=== PATIENT | male | born 1975 | race Two or more races ===

== ENCOUNTER 2021-09-04 13:20 | Inpatient (IN) | payer OTHER ==
[2021-09-04 15:12] VITALS: BMI 34.2
[2021-09-04] MEDS ORDERED: ACETAMINOPHEN 325 MG TABLET (FP) PO PRN (16:19)
[2021-09-04] MEDS ORDERED: P-EPHED 60MG/TRIPROLIDI 2.5MG TABLET PO PRN (16:19)
[2021-09-04] MEDS ORDERED: IBUPROFEN 400 MG TABLET (FP) PO PRN (16:19)
[2021-09-04] MEDS ORDERED: LOPERAMIDE HCL 2 MG CAPSULE PO PRN (16:19)
[2021-09-04] MEDS ORDERED: MAG HYDROX/AL HYDROX/SIMETH 30 ML UNIT-DOSE CUP PO PRN (16:19)
[2021-09-04] MEDS ORDERED: guaiFENesin 200 MG/10 ML 10 ML UNIT-DOSE CUPS PO PRN (16:19)
[2021-09-04] MEDS ORDERED: MAGNESIUM CITRATE 300 ML BOTTLE PO PRN (16:19)
[2021-09-04] MEDS ORDERED: MAGNESIUM HYDROX 2400MG/30ML ORAL SUSPENSION 30 ML CUP PO PRN (16:19)
[2021-09-04] MEDS: hydrOXYzine PAMOATE 25 MG CAPSULE (FP) PO SCH ×2 (20:58→21:02)
[2021-09-04] MEDS: MELATONIN 5 MG TABLETS PO SCH (21:02)
[2021-09-04] MEDS: THIAMINE HCL 100 MG TABLET (FP) PO SCH (21:02)
[2021-09-05] MEDS: hydrOXYzine PAMOATE 25 MG CAPSULE (FP) PO SCH ×5 (06:37→21:07)
[2021-09-05] MEDS ORDERED: methaDONE HCL 10 MG TABLET PO ONE (09:14)
[2021-09-05] MEDS ORDERED: methaDONE 40 MG, methaDONE 20 MG PO ONE (09:30)
[2021-09-05] MEDS ORDERED: methaDONE HCL 10 MG TABLET ONE (09:37)
[2021-09-05] MEDS ORDERED: methaDONE HCL 40 MG DISPERSABLE TABLET ONE (09:37)
[2021-09-05] MEDS: NICOTINE 7 MG/24 HOURS TOPICAL PATCH TD SCH (10:13)
[2021-09-05] MEDS: PRENATAL VITAMINS W/ FOLIC ACID TABLET (FP) PO SCH (10:13)
[2021-09-05] MEDS: LISINOPRIL 20 MG TABLET PO SCH (10:14)
[2021-09-05 10:40] LABS: URINE APPEARANCE CLEAR; URINE BILIRUBIN NEGATIVE (NEGATIVE); URINE COLOR YELLOW; URINE GLUCOSE (UA) NEGATIVE (NEGATIVE); URINE KETONE NEGATIVE (NEGATIVE); URINE LEUK ESTERASE NEGATIVE (NEGATIVE); URINE NITRITE NEGATIVE (NEGATIVE); URINE PROTEIN NEGATIVE (NEGATIVE)
[2021-09-05] MEDS: APIXABAN 2.5 MG TABLET PO SCH ×2 (11:31→21:08)
[2021-09-05] MEDS: INSULIN SLIDING SCALE (NOVOLOG) 1 VIAL SQ SCH ×3 (11:33→21:09)
[2021-09-05] MEDS: GABAPENTIN 400 MG CAPSULE PO SCH ×2 (15:32→21:07)
[2021-09-05] MEDS: THIAMINE HCL 100 MG TABLET (FP) PO SCH (21:07)
[2021-09-05] MEDS: MELATONIN 5 MG TABLETS PO SCH (21:07)
[2021-09-05] MEDS: INSULIN (LEVEMIR) 100 UNITS/ML UNITS SQ SCH (21:08)
[2021-09-05] MEDS: ATORVASTATIN CA 10 MG TABLET (FP) PO SCH (21:08)
[2021-09-06] MEDS ORDERED: methaDONE HCL 40 MG DISPERSABLE TABLET ONE (04:05)
[2021-09-06] MEDS ORDERED: methaDONE HCL 10 MG TABLET ONE (04:06)
[2021-09-06] MEDS ORDERED: methaDONE HCL 10 MG TABLET PO SCH (06:00)
[2021-09-06] MEDS: methaDONE 40 MG, methaDONE 20 MG PO SCH (06:24)
[2021-09-06] MEDS: hydrOXYzine PAMOATE 25 MG CAPSULE (FP) PO SCH ×5 (06:24→21:07)
[2021-09-06] MEDS: GABAPENTIN 400 MG CAPSULE PO SCH ×3 (06:24→21:07)
[2021-09-06] MEDS: INSULIN SLIDING SCALE (NOVOLOG) 1 VIAL SQ SCH ×4 (06:27→21:17)
[2021-09-06] MEDS: PRENATAL VITAMINS W/ FOLIC ACID TABLET (FP) PO SCH (09:55)
[2021-09-06] MEDS: APIXABAN 2.5 MG TABLET PO SCH ×2 (09:55→21:08)
[2021-09-06] MEDS: LISINOPRIL 20 MG TABLET PO SCH (09:55)
[2021-09-06] MEDS: NICOTINE 7 MG/24 HOURS TOPICAL PATCH TD SCH (09:55)
[2021-09-06 10:48] LABS: BLOOD UREA NITROGEN 8.5 mg/dL (7-18)
[2021-09-06 10:51] LABS: CREATININE 0.7 mg/dL (0.55-1.3)
[2021-09-06] MEDS: LIDOCAINE 5% TOPICAL PATCH TP SCH (11:48)
[2021-09-06] MEDS: ATORVASTATIN CA 10 MG TABLET (FP) PO SCH (21:07)
[2021-09-06] MEDS: THIAMINE HCL 100 MG TABLET (FP) PO SCH (21:07)
[2021-09-06] MEDS: MELATONIN 5 MG TABLETS PO SCH (21:07)
[2021-09-06] MEDS: INSULIN (LEVEMIR) 100 UNITS/ML UNITS SQ SCH (21:08)
[2021-09-06] MEDS: LIDOCAINE PATCH REMOVAL MC SCH (21:09)
[2021-09-07] MEDS ORDERED: methaDONE HCL 40 MG DISPERSABLE TABLET ONE (04:20)
[2021-09-07] MEDS ORDERED: methaDONE HCL 10 MG TABLET ONE (04:20)
[2021-09-07] MEDS: hydrOXYzine PAMOATE 25 MG CAPSULE (FP) PO SCH ×5 (06:18→21:50)
[2021-09-07] MEDS: methaDONE 40 MG, methaDONE 20 MG PO SCH (06:18)
[2021-09-07] MEDS: GABAPENTIN 400 MG CAPSULE PO SCH ×3 (06:18→21:28)
[2021-09-07] MEDS: INSULIN SLIDING SCALE (NOVOLOG) 1 VIAL SQ SCH ×4 (06:22→21:49)
[2021-09-07] MEDS: NICOTINE 7 MG/24 HOURS TOPICAL PATCH TD SCH (09:24)
[2021-09-07] MEDS: LIDOCAINE 5% TOPICAL PATCH TP SCH (09:24)
[2021-09-07] MEDS: APIXABAN 2.5 MG TABLET PO SCH ×2 (09:24→21:28)
[2021-09-07] MEDS: PRENATAL VITAMINS W/ FOLIC ACID TABLET (FP) PO SCH (09:24)
[2021-09-07] MEDS: LISINOPRIL 20 MG TABLET PO SCH (09:24)
[2021-09-07] MEDS: THIAMINE HCL 100 MG TABLET (FP) PO SCH (21:27)
[2021-09-07] MEDS: ATORVASTATIN CA 10 MG TABLET (FP) PO SCH (21:27)
[2021-09-07] MEDS: MELATONIN 5 MG TABLETS PO SCH (21:28)
[2021-09-07] MEDS: LIDOCAINE PATCH REMOVAL MC SCH (21:28)
[2021-09-07] MEDS: INSULIN (LEVEMIR) 100 UNITS/ML UNITS SQ SCH (21:34)
[2021-09-08] MEDS ORDERED: methaDONE HCL 10 MG TABLET ONE (03:50)
[2021-09-08] MEDS ORDERED: methaDONE HCL 40 MG DISPERSABLE TABLET ONE (03:51)
[2021-09-08] MEDS: methaDONE 40 MG, methaDONE 20 MG PO SCH (06:20)
[2021-09-08] MEDS: GABAPENTIN 400 MG CAPSULE PO SCH ×3 (06:21→21:01)
[2021-09-08] MEDS: hydrOXYzine PAMOATE 25 MG CAPSULE (FP) PO SCH ×5 (06:21→21:01)
[2021-09-08] MEDS: INSULIN SLIDING SCALE (NOVOLOG) 1 VIAL SQ SCH ×4 (08:35→21:09)
[2021-09-08] MEDS: NICOTINE 7 MG/24 HOURS TOPICAL PATCH TD SCH (10:12)
[2021-09-08] MEDS: LIDOCAINE 5% TOPICAL PATCH TP SCH (10:12)
[2021-09-08] MEDS: LISINOPRIL 20 MG TABLET PO SCH (10:12)
[2021-09-08] MEDS: PRENATAL VITAMINS W/ FOLIC ACID TABLET (FP) PO SCH (10:13)
[2021-09-08] MEDS: APIXABAN 2.5 MG TABLET PO SCH ×2 (10:13→21:47)
[2021-09-08] MEDS: buPROPion HCL 75 MG TABLET PO SCH (14:23)
[2021-09-08] MEDS: THIAMINE HCL 100 MG TABLET (FP) PO SCH (21:03)
[2021-09-08] MEDS: MELATONIN 5 MG TABLETS PO SCH (21:03)
[2021-09-08] MEDS: ATORVASTATIN CA 10 MG TABLET (FP) PO SCH (21:03)
[2021-09-08] MEDS: INSULIN (LEVEMIR) 100 UNITS/ML UNITS SQ SCH (21:09)
[2021-09-08] MEDS: LIDOCAINE PATCH REMOVAL MC SCH (21:10)
[2021-09-09] MEDS ORDERED: methaDONE HCL 40 MG DISPERSABLE TABLET ONE (03:54)
[2021-09-09] MEDS ORDERED: methaDONE HCL 10 MG TABLET ONE (03:54)
[2021-09-09] MEDS: methaDONE 40 MG, methaDONE 20 MG PO SCH (06:22)
[2021-09-09] MEDS: hydrOXYzine PAMOATE 25 MG CAPSULE (FP) PO SCH ×4 (06:23→17:03)
[2021-09-09] MEDS: GABAPENTIN 400 MG CAPSULE PO SCH ×2 (06:23→14:25)
[2021-09-09] MEDS: INSULIN SLIDING SCALE (NOVOLOG) 1 VIAL SQ SCH ×3 (06:25→17:05)
[2021-09-09] MEDS: buPROPion HCL 75 MG TABLET PO SCH ×2 (06:25→14:25)
[2021-09-09 06:43] VITALS: TEMP 97.3
[2021-09-09] MEDS ORDERED: COLLOIDAL OATMEAL 1 BAR EACH TP PRN (09:21)
[2021-09-09 09:26] VITALS: BP 112/69; PULSE 68
[2021-09-09] MEDS ORDERED: MINERAL OIL/PETROLAT/WATER TOPICAL CREAM 113 GM JAR TP SCH (10:00)
[2021-09-09] MEDS: LIDOCAINE 5% TOPICAL PATCH TP SCH (10:03)
[2021-09-09] MEDS: LISINOPRIL 20 MG TABLET PO SCH (10:03)
[2021-09-09] MEDS: NICOTINE 7 MG/24 HOURS TOPICAL PATCH TD SCH (10:04)
[2021-09-09] MEDS: APIXABAN 2.5 MG TABLET PO SCH (10:04)
[2021-09-09] MEDS: PRENATAL VITAMINS W/ FOLIC ACID TABLET (FP) PO SCH (11:57)
[2021-09-09] MEDS: NICOTINE 10 MG CARTRIDGE (INHALER) IH PRN ×2 (12:12→17:04)
== END 2021-09-09 17:23 | disposition left against medical advice (07) | DRG 770 ==
LOC: YASAS 13:20 → Y3W 16:00 → Y3E 09-07 14:00
PROVIDERS: ADMIT Allergy & Immunology; ATTEND Allergy & Immunology
PROC: HZ42ZZZ Group Counseling for Substance Abuse Treatment, Cognitive-Behavioral (ICD-10-PCS; principal; 2021-09-04)
DX: F11.20 Opioid dependence, uncomplicated (principal); F14.20 Cocaine dependence, uncomplicated; F17.210 Nicotine dependence, cigarettes, uncomplicated; F41.8 Other specified anxiety disorders; F32.A Depression, unspecified; I10 Essential (primary) hypertension; E11.9 Type 2 diabetes mellitus without complications; Z79.4 Long term (current) use of insulin; J45.909 Unspecified asthma, uncomplicated; L85.3 Xerosis cutis; M54.50 Low back pain, unspecified; Z62.810 Personal history of physical and sexual abuse in childhood; E66.9 Obesity, unspecified; Z68.34 Body mass index [BMI] 34.0-34.9, adult; Z86.711 Personal history of pulmonary embolism; Z79.01 Long term (current) use of anticoagulants; Z59.00 Homelessness unspecified
CPT/HCPCS: 36415; 80048; 81003; 82962; C9803; U0003; U0005